=== PATIENT | male | born 1990 | race African-American/Black ===

== ENCOUNTER 2018-05-07 02:16 | Emergency (ER) | payer OTHER ==
[~2018-05-07] VITALS: Ht 182.9 cm; Wt 81.6 kg
[2018-05-07 02:17] VITALS: BP 127/75
--- NOTE | 2018-05-07 02:27 | NUR ---
ED Nurse Note: pt was brought in by ambulance assisted by lapd c/o posible overdose. pt stated he doesnt took anything, he denies pain, has no complaint. per geri, pt broke in into a smoke shop and were not cooperative with them, pt answering question. on handcuffs. lapd on scene. seen by elda. will continue to monitor.
--- NOTE | 2018-05-07 02:32 | NUR ---
ED Nurse Note: jordand doing the introgation to the pt, pt stated that his name is SERAFIN MILIAN. unable to provide date of and address. pt is calm on bed. has no complaint at the moment. will continue to monitor.
--- NOTE | 2018-05-07 02:41 | Emergency Room Report ---
History of Present Illness General Chief Complaint: Medical Clearance Source: Patient Present Illness HPI This is an approximately 28-year-old -[place] male present for medical clearance. He presents as a Regino Mancilla because he refuse to give his name. He is brought in by EMS with police escort because he was arrested while trying to [employer] a store. Because he refuse to answer any question, they thought that he may have overdose or on some drugs. Patient denies any drug use. The only thing he said is that he is homeless and refuse to answer any question. He said that he doesn't want to talk to me and he is wanted me to call do what you have to do so I can go to my cell." Allergies: Coded Allergies: No Known Allergies (Unverified , 05/07/18) Patient History Past Medical History: see triage record, old chart reviewed, unable to obtain Past Surgical History: unable to obtain Pertinent Family History: unable to obtain Immunizations: other Reviewed Nursing Documentation: PMH: Agreed; PSxH: Agreed Nursing Documentation-PMH Past Medical History: No Stated History Review of Systems All Other Systems: limited - Patient is not cooperating Physical Exam Vital Signs Date Time Temp Pulse Resp B/P (MAP) Pulse Ox O2 Delivery O2 Flow Rate FiO2 05/07/18 02:14 98.1 76 14 127/75 99 Room Air vitals normal Sp02 EP Interpretation: reviewed, normal General Appearance: well appearing, no apparent distress, alert Head: normocephalic, atraumatic Eyes: bilateral eye PERRL, bilateral eye EOMI ENT: hearing grossly normal, normal pharynx Neck: full range of motion, supple, no meningismus Respiratory: chest non-tender, lungs clear, normal breath sounds Cardiovascular #1: regular rate, rhythm, no murmur Gastrointestinal: normal bowel sounds, non tender, no mass, no organomegaly, no bruit, non-distended Musculoskeletal: back normal, gait/station normal, normal range of motion Psychiatric: mood/affect normal Skin: warm/dry Medical Decision Making Diagnostic Impression: Primary Impression: Examination, medicolegal reason ER Course Patient here for medical clearance for booking. He does not appear to be under influence of any drugs or alcohol. His speech is clear. He's walking without any difficulty. Pupils are pinpoint. His thought process are not tangential. He doesn't appear to be paranoid. He is not cooperating and not answering questions. Last Vital Signs Date Time Temp Pulse Resp B/P (MAP) Pulse Ox O2 Delivery O2 Flow Rate FiO2 05/07/18 02:17 98.1 76 14 127/75 99 Room Air Status: unchanged Disposition: D/C TO LAW ENFORCEMENT IN [facility] Condition: Stable Referrals: NOT CHOSEN IPA/,REFERRING (PCP) Additional Instructions: Follow-up with your doctor in 7 days as needed. Return if symptom worsen. Wilson Vogel MD May 07, 2018 02:40
[2018-05-07 02:45] VITALS: BP 115/75
--- NOTE | 2018-05-07 02:45 | NUR ---
ED Nurse Note: pt was ok to book. went out with lapd on a steady gait.
== END 2018-05-07 02:45 ==
LOC: EDBD 02:16 → EMR 02:31
DX: Z02.2 Encounter for examination for admission to residential institution (principal); Z59.0 Homelessness
CPT/HCPCS: 96361; 96374; 99284